=== PATIENT | female | born 1985 | race American Indian/Alaskan Native ===

== ENCOUNTER 2016-11-05 08:16 | Emergency (ER) | payer SELFPAY ==
[2016-11-05 08:50] VITALS: BP 113/73
[2016-11-05 09:22] LABS: Bacteria,Urine 1+ /HPF (Negative); Bilirubin,Urine NEG (Negative); Blood,Urine NEG (Negative); Ketones,Urine NEG (Negative); Leukocyte Esterase,Urine LG (Negative); Mucus,Urine FEW /HPF; Nitrite,Urine NEG (Negative); Protein,Urine <15 mg/dL mg/dL (Negative); Urobilinogen,Urine < 2.0 mg/dL (<2.0)
--- NOTE | 2016-11-05 12:14 | Emergency Department Report ---
HPI - General Chief Complaint: Abdominal Pain Time Seen by Provider: 11/05/16 10:20 - HPI HPI: This is a 31-year-old female presents to ED complaining of left flank pain and lower pelvic pain times a couple of weeks. Patient states that it progressively worsened last weeks. Patient states she is having some vaginal discharge intermittently for the past 4 weeks. Patient also admits some mild pain with sex. Patient denies fevers/chills/nausea/vomiting/chest pain/shortness of breath/ vaginal bleeding/urinary frequency/dysuria. ED Past Medical Hx - Past Medical History Previous Medical History?: No - Surgical History Past Surgical History?: Yes Additional Surgical History: Miscarriage 09-05-2016 - Social History Smoking Status: Never Smoker Substance Use Type: Alcohol - Medications Home Medications: Home Medications Medication Instructions Recorded Confirmed Last Taken Type Ibuprofen [Motrin] 800 mg PO Q8HR PRN #20 tablet 11/05/16 Unknown Rx Sulfamethoxazole/Trimethoprim 1 each PO BID #14 tablet 11/05/16 Unknown Rx [Bactrim DS TAB] ED Review of Systems ROS: Stated complaint: LT SIDE ABD PAIN /PELVIC PAIN Other details as noted in HPI Constitutional: denies: chills, fever Eyes: denies: eye pain, eye discharge, vision change ENT: denies: ear pain, throat pain, dental pain, hearing loss, congestion Respiratory: denies: cough, shortness of breath, wheezing Cardiovascular: denies: chest pain, palpitations Endocrine: no symptoms reported Gastrointestinal: denies: abdominal pain, nausea, diarrhea Genitourinary: denies: urgency, dysuria, discharge Musculoskeletal: denies: back pain, joint swelling, arthralgia Skin: denies: rash, lesions Neurological: denies: headache, weakness, paresthesias Psychiatric: denies: anxiety, depression Hematological/Lymphatic: denies: easy bleeding, easy bruising Physical Exam - Physical Exam Vital Signs: Vital Signs 11/05/16 08:46 Temperature 98.4 F Pulse Rate 62 Respiratory 16 Rate Blood Pressure 113/73 O2 Sat by Pulse 100 Oximetry Physical Exam: GENERAL: Alert and oriented x3, no apparent distress, Normal Gait, atraumatic. HEAD: Head is normocephalic and a-traumatic. EYES: Extra ocular muscles are intact. Pupils are equal, round, and reactive to light and accommodation. LUNGS: Symetrical with respiration, No wheezing, no rales or crackles, CTAB. HEART: S1, S2 present, regular rate and rhythm without murmur, no rubs, no gallops. ABDOMEN: No organomegaly was noted,Positive bowel sounds, soft, and non- distended. Nontender to palpation on all Quadrants, Left sided CVA tenderness GENITOURINARY: External genitalia without erythema, exudate or discharge. Vaginal vault is with mild discharge. Cervix is of normal color without lesion. Cervix is friable . Cervical os is closed. No bleeding noted. Uterus is noted to be of normal size and nontender. Positive cervical motion tenderness. No masses are palpated. The adnexa are without masses or tenderness. EXTREMITIES/MUSCULOSKELETAL: No cyanosis, clubbing, rash, lesions or edema. Full ROM bilaterally. UE/LE Pulses 2+ bilaterally. LE and UE 5+ strength bilaterally, straight leg raise negative bilaterally SKIN: Warm and dry, No lesions, No ulceration or induration present. ED Course Vital Signs 11/05/16 08:46 Temperature 98.4 F Pulse Rate 62 Respiratory 16 Rate Blood Pressure 113/73 O2 Sat by Pulse 100 Oximetry ED Medical Decision Making - Medical Decision Making 31-year-old female presents with trichomoniasis/UTI ED course: Urinalysis ordered, test ordered, wet prep, gonorrhea and chlamydia ordered Urinalysis positive for bacteria, prep positive for trichomoniasis. Patient received Rocephin, azithromycin and Flagyl in the ED. Discussed the patient will be treated for gonorrhea/chlamydia as well as Trichomonas is a Discussion of his STD prevention and safe sex practices processes. Discussed to follow up with health Department to have further STD testing or CORRESPONDENCE REVIEW CLERK doctor has referred. Vital signs are normal patient is in no acute respiratory distress. Discussed the patient to abstain from intercourse for the next 7-10 days while being treated. Discussed in patient to have partner treated Critical care attestation.: If time is entered above; I have spent that time in minutes in the direct care of this critically ill patient, excluding procedure time. ED Disposition Clinical Impression: Trichomonal vulvovaginitis, STD (sexually transmitted disease) UTI (urinary tract infection) Qualifiers: Urinary tract infection type: acute cystitis Hematuria presence: with hematuria Qualified Code(s): N30.01 - Acute cystitis with hematuria Disposition: DISCHARGED TO HOME OR SELFCARE Is pt being admited?: No Does the pt Need Aspirin: No Condition: Stable Instructions: Sexually Transmitted Diseases (ED), Safe Sex (ED), Trichomoniasis (ED), Urinary Tract Infection in Women (ED), Abdominal Pain (ED) Prescriptions: Ibuprofen [Motrin] 800 mg PO Q8HR PRN #20 tablet PRN Reason: Pain Sulfamethoxazole/Trimethoprim [Bactrim DS TAB] 1 each PO BID #14 tablet Referrals: PRIMARY MD ANTONY [Primary Care Provider] - 3-5 Days ARTHUR HSU MD [Referring] - 3-5 Days [facility] [Outside] - 3-5 Days [facility] [Outside] - 3-5 Days [facility] [Outside] - 3-5 Days Forms: Work/School Release Form(ED) Time of Disposition: 12:58
[2016-11-05] MEDS ORDERED: ROCEPHIN IM ONE (12:28)
[2016-11-05] MEDS ORDERED: ZITHROMAX PO ONE (12:28)
[2016-11-05] MEDS ORDERED: FLAGYL PO ONE (12:28)
[2016-11-05] MEDS ORDERED: XYLOCAINE 1% MPF 5 mL INFILTRATI ONE (12:28)
== END 2016-11-05 13:36 | disposition home or self-care (01) ==
LOC: ED 08:16
DX: A59.01 Trichomonal vulvovaginitis (principal); N30.01 Acute cystitis with hematuria
CPT/HCPCS: 81001; 81025; 87086; 87210; 87591; 96372; 99284; J0696